=== PATIENT | male | born 2000 ===

== ENCOUNTER 2019-12-31 21:15 | Emergency (ER) | payer BC, OTHER ==
[~2019-12-31] VITALS: Ht 190.5 cm; Wt 72.0 kg
[2019-12-31] MEDS ORDERED: MAALOX/HYOSCYAMINE/LIDOCAINE 45 ML BTL PO ONE (21:30)
[2019-12-31] MEDS ORDERED: MAALOX/HYOSCYAMINE/LIDOCAINE 45 ML BTL ONE (21:50)
--- NOTE | 2019-12-31 21:56 | NUR ---
pt resting comfortably in [facility] with call light within reach. pt medicated per mar. pt educated on er process and poc and verbalizes understanding. pt verbalizes understanding of need for urine sample at this time.
[2019-12-31 22:02] LABS: BASOPHILS % (AUTO) 1 % (0-1); EOSINOPHILS % (AUTO) 0 % (1-7); LYMPHOCYTES % (AUTO) 48 % (22-44); MEAN CORPUSCULAR HEMOGLOBIN 29.9 pg (27.5-34.5); MEAN CORPUSCULAR HGB CONC 34.5 g/dL (33.2-36.2); MONOCYTES % (AUTO) 12 % (2-9); NEUTROPHILS % (AUTO) 40 % (42-75); PLATELET COUNT 179 x10^3/uL (130-400); RED BLOOD COUNT 5.47 x10^6/uL (4.38-5.82); RED CELL DISTRIBUTION WIDTH 12.8 % (9.4-14.8)
[2019-12-31 22:09] LABS: MD NO
[2019-12-31 22:10] LABS: ALANINE AMINOTRANSFERASE 25 U/L (12-78); ALBUMIN 4.5 g/dL (3.4-5.0); ANION GAP 4 mmol/L (5-15); CALCIUM 9.4 mg/dL (8.5-10.1); CHLORIDE 106 mmol/L (98-107)
[2019-12-31 22:14] LABS: ALKALINE PHOSPHATASE 76 U/L (45-117); BILIRUBIN,TOTAL 0.6 mg/dL (0.2-1.0); SALICYLATE LEVEL < 1.7 mg/dL (2.8-20.0); TOTAL PROTEIN 8.1 g/dL (6.4-8.2)
--- NOTE | 2019-12-31 22:38 | NUR ---
pt provided urine sample. sample walked to laboratory at this time. pt resting in [facility] with pro.
[2019-12-31 23:00] LABS: AMPHETAMINE SCREEN, URINE Negative (Negative); BARBITURATE SCREEN, URINE Negative (Negative); BENZODIAZEPINE SCREEN, URINE Negative (Negative); CANNABINOID SCREEN, URINE Negative (Negative); COCAINE SCREEN, URINE Negative (Negative); METHADONE SCREEN, URINE Negative (Negative); OPIATE SCREEN, URINE Negative (Negative)
--- NOTE | 2019-12-31 23:50 | NUR ---
[employer] at bs for pt psyciatric exam at this time. pt questions answered.
--- NOTE | 2020-01-01 00:47 | NUR ---
PT RESTING COMFORTABLY IN [facility] AT THIS TIME. AWAITING TELEPSYCH REPORT FROM PSYCHIATRY AT THIS TIME.
--- NOTE | 2020-01-01 00:51 | NUR ---
Pt mother Kylah and father Khadar req updates on patient when possible. Mother [phone] [phone]
[2020-01-01 01:47] VITALS: BP 112/64
--- NOTE | 2020-01-01 01:48 | NUR ---
pt in [facility] at this time with stable vs. pt requesting to be d/c. awaiting further dispo of pt at this time from [facility].
[2020-01-01] MEDS ORDERED: OLANZAPINE 5 MG TABLET ONE (02:00)
[2020-01-01] MEDS ORDERED: LORazepam 1MG TABLET PO ONE (02:00)
[2020-01-01] MEDS ORDERED: OLANZAPINE 5 MG TABLET PO ONE (02:00)
[2020-01-01] MEDS ORDERED: LORazepam 1MG TABLET ONE (02:00)
--- NOTE | 2020-01-01 02:16 | NUR ---
PT WAS EVALUATED BY SOC DOCTOR DUE TO MANIC BEHAVIOR AND ERP CONCERN OF NEW ONSET BIPOLAR DISORDER. AFTER MEDICAL EVALUATION, PSYCHIATRIST DETERMINED THAT PT WAS SAFE FOR D/C HOME AFTER PO MEDICATION PER APR. PT PROVIDED A TAXI VOUCHER TO APARTMENT FOR SAFE D/C HOME, AND DENIES ANY OTHER NEEDS AT THIS TIME. PT DENIES SI/HI PRIOR TO D/C AND VERBALIZES NEED TO COME BACK TO EMERGENCY DEPARTMENT IF SYMPTOMS OF INSOMNIA AND ANXIETY CONTINUE TO PERSIST. PT QUESTIONS ANSWERED. PT D/C HOME WITH D/C SUMMARY AND SCRIPTS. 10 MINUTES OF EDUCATION SPENT WITH PT AT BS. PT AMBULATES TO REGISTRATION DESK WITH STEADY GAIT AND STABLE VS.
== END 2020-01-01 02:25 | disposition home or self-care (01) ==
LOC: ED 21:54
DX: K29.00 Acute gastritis without bleeding (principal); F15.14 Other stimulant abuse with stimulant-induced mood disorder; F14.10 Cocaine abuse, uncomplicated; F12.10 Cannabis abuse, uncomplicated
CPT/HCPCS: 36415; 80053; 80307; 83690; 85025; 99284